=== PATIENT | female | born 1965 | race Caucasian/White ===

== ENCOUNTER → 2020-07-11 07:48 | Outpatient (CLI) | payer OTHER, SELFPAY ==
[2020-07-03 10:05] VITALS: BMI 37.7
--- NOTE | 2020-07-11 07:49 | ECHOD_ITS ---
Reason For Study: Arrhythmia Procedure This was a 2D Doppler, Color Flow transthoracic echocardiogram. Exam performed in department. Left Ventricle Normal LV size. Left ventricular systolic function is normal. The estimated ejection fraction is 55 %. Normal diastology for age. No regional wall motion abnormalities noted. Right Ventricle Normal RV size. Normal systolic function. Atria Normal left atrium. Normal right atrium. Mitral Valve Normal mitral valve. Tricuspid Valve Normal tricuspid valve. Aortic Valve Normal aortic valve. Trisinus/trileaflet aortic valve. Pulmonic Valve Normal pulmonic valve. Great Vessels Normal aortic root. The pulmonary artery is normal size. Normal inferior vena cava. Pericardium/Pleural No pericardial effusion. MMode/2D Measurements & Calculations LVIDd: 5.2 cm IVSd: 0.83 cm Ao root diam: 3.5 cm LVIDs: 3.1 cm LVPWd: 0.83 cm RVDd: 2.9 cm FS: 39.2 % LAV(MOD-bp): 45.6 ml LVAd ap4: 26.5 cm2 SV(MOD-sp4): 45.4 ml LAV(MOD-bp) Indexed: 20.4 ml/m2 EDV(MOD-sp4): 74.4 ml LAV(MOD-sp2): 47.6 ml EDV(sp4-el): 77.1 ml LAV(MOD-sp4): 41.0 ml LVAs ap4: 15.0 cm2 ESV(MOD-sp4): 29.0 ml ESV(sp4-el): 28.0 ml EF(MOD-sp4): 61.0 % EF(sp4-el): 63.7 % SV(sp4-el): 49.1 ml LA A4 area: 16.7 cm2 LA dimension(2D): 3.8 cm RA A4 area: 13.5 cm2 Doppler Measurements & Calculations MV E max emerson: 70.7 cm/sec Lat Peak E' Emerson: 10.9 cm/sec Med Peak E' Emerson: 9.6 cm/sec MV A max emerson: 68.0 cm/sec E/E' lat: 6.5 E/E' med: 7.3 MV E/A: 1.0 Ao V2 max: 126.1 cm/sec LV V1 max: 100.3 cm/sec PA V2 max: 83.5 cm/sec Ao max P.4 mmHg LV V1 max P.0 mmHg Interpretation Summary Normal LV size. Left ventricular systolic function is normal. The estimated ejection fraction is 55 %. Normal diastology for age. Structurally normal valves. Ordering Physician: Elvis Shay Referring Physician: Elvis Shay MD Performed By: Shalonda Blandon RDCS
== END ==
PROVIDERS: PCP Family Medicine; Referring Provider Internal Medicine Cardiovascular Disease; Visit Provider Internal Medicine Cardiovascular Disease
DX: I10 Essential (primary) hypertension (principal); R00.2 Palpitations
CPT/HCPCS: 93306

== ENCOUNTER → 2024-12-18 | Outpatient (CLI) | payer SELFPAY ==
--- NOTE | 2024-12-18 07:17 | CT_ITS ---
PROCEDURE: LIMITED CHEST CT CARDIAC ONLY REASON FOR EXAM: FAMILY RISK TECHNIQUE: Prone and supine chest CT without contrast, high resolution CT (HRCT) protocol. Coronal and Sagittal reconstruction series were provided. One or more dose reduction techniques were used (e.g., Automated exposure control, adjustment of the mA and/or kV according to patient size, use of iterative reconstruction technique). COMPARISON: None available for comparison. FINDINGS: Hardware: None Lymph nodes: There are small benign-appearing mediastinal lymph nodes. Heart and Vasculature: Normal heart size. No pericardial effusion. Coronary Artery Calcifications: Absent Lungs and Airways: Mild dependent atelectasis resolves with prone positioning. Pleura: Unremarkable Upper Abdomen: Fatty infiltration of the liver. Small hiatal hernia. Bones: Unremarkable. CT/Limited Chest CT Cardiac Only IMPRESSION: Coronary artery calcification (CAC) is is absent Reading Location: [id number]
--- NOTE | 2024-12-18 16:09 | CA.SCORE ---
Calcium Scoring Date of Study:: 12/18/24 Indications Indications: Family history Coronary Calcium Scoring: High-resolution Computed Tomographic imaging of the chest was performed on [12/18/2024], with particular attention paid to the coronary arteries. Images from the examination were analyzed for the presence and extent of coronary artery calcification , using coronary calcium quantification software. The patient tolerated the procedure well and there were no complications. The results of the coronary calcification analysis are provided below. Findings Coronary Artery Left Main (LM): 0 Left Anterior Descending (LAD): 0 Left Circumflex (LCX): 0 Right Coronary Artery (RCA): 0 Total Agatston Score: 0 Percentile Rankin% Calcium Scoring Interpretation: Different methods to categorize the overall amount of coronary plaque. Overall amount CAC SIS Visual of coronary plaque P1 Mild -100 <2 1-2 vessels with mild amount of plaque P2 Moderate 101-300 3-4 1-2 vessels with moderate amount, 3 vessels with mild amount of plaque P3 Severe 301-999 5-7 3 vessels with moderate amount, 1 vessel with severe amount of plaque P4 Extensive >1000 >8 2-3 vessels with severe amount of plaque Conclusion: No atherosclerotic plaque noted
== END | disposition home or self-care (01) ==
LOC: CT 07:13
PROVIDERS: PCP Family Medicine; Referring Provider Physician Assistant Medical; Visit Provider Physician Assistant Medical
DX: I10 Essential (primary) hypertension (principal); E78.00 Pure hypercholesterolemia, unspecified
CPT/HCPCS: 75571; 76380